=== PATIENT | male | born 1970 | race Caucasian/White ===

== ENCOUNTER 2021-09-03 11:23 | Observation (INO) | payer OTHER, SELFPAY ==
[2021-09-03 11:24] VITALS: BP 193/81; PULSE 89; RESP 16; TEMP 36.2; O2SAT 98; BMI 46.9
--- NOTE | 2021-09-03 11:48 | EDS_ITS ---
HPI History of Present Illness Chief Complaint: Bite Narrative Narrative: Patient was bit by a cat yesterday. He did not come into the hospital today he noticed lymphangitic streaking all the way up his arm. He has no fever or chills. He is a diabetic. ROS ROS ED ROS Narrative Past medical history: Reviewed, diabetes, hypertension Medications: Reviewed Social history: Noncontributory Review of systems: All systems negative except as indicated General: No fever Cardiovascular: No chest pain Respiratory: No shortness of breath or cough Gastrointestinal: No abdominal pain, nausea vomiting or diarrhea Genitourinary: No dysuria Musculoskeletal: Left hand cat bite Skin: As in HPI Neurological: No memory loss, confusion or any focal weakness Psych: No recent behavioral changes Hematologic: No easy bleeding or easy bruising PFSH PFS Medical History Diabetes Hypertension Allergy/AdvReac Type Severity Reaction Status Date / Time amoxicillin Allergy Hives Verified 09/03/21 11:25 Social History Smoking Status: Never smoker EXAM Physical Exam Narrative Exam Narrative: Physical exam General: Well nourished, Well developed, No Acute Distress Head: Normocephalic, Atraumatic Eyes: Conjunctiva not pale ENT: Moist mucous membranes Neck: Supple, Nontender, No lymphadenopathy Cardiovascular: Regular rate, Regular rhythm Respiratory: No distress, CTA bilaterally Abdomen: Soft, Nontender, Nondistended Back: Nontender, Normal Inspection. Negative for: CVA tenderness Extremities: Left hand shows swelling and edema on the dorsum of the hand in between first and second digits. There is lymphangitic streak all the way up near the axilla but I cannot appreciate any axillary lymphadenopathy. No signs of an abscess. Skin: As above Neurological: Alert, Normal Strength, Normal Sensation Psychological: Normal affect Const Vital Signs: 09/03/21 11:24 Temperature 97.2 F L Temperature Source Temporal Pulse Rate 89 Respiratory Rate 16 Blood Pressure 193/81 H Blood Pressure Mean 118 Pulse Ox 98 Oxygen Delivery Method Room Air MDM MDM MDM Narrative Medical decision making narrative: Patient was given IV antibiotics because of the significant lymphangitic streaking I will admit him. Lab Data Labs: Laboratory Results - last 24 hr 09/03/21 09/03/21 12:00 12:00 WBC 10.2 RBC 4.57 L Hgb 14.1 Hct 41.6 MCV 91.0 MCH 30.9 MCHC 33.9 RDW Std Deviation 43.3 RDW Coeff of Saeed 13.2 Plt Count 251 MPV 9.5 Immature Gran % (Auto) 0.300 Neut % (Auto) 68.0 Lymph % (Auto) 16.6 L [place] % (Auto) 10.2 H Eos % (Auto) 4.5 Baso % (Auto) 0.4 Absolute Neuts (auto) 6.9 Absolute Lymphs (auto) 1.69 Nucleated RBC % 0 Sodium 137 Potassium 3.7 Chloride 104 Carbon Dioxide 27.0 Anion Gap 6 BUN 19 H Creatinine 1.26 Estim Creat Clear Calc 65.60 Est GFR (MDRD) Af Amer 77 Est GFR (MDRD) Non-Af 64 BUN/Creatinine Ratio 15.1 Glucose 172 H Calcium 9.8 Total Bilirubin 1.10 H AST 18 ALT 34 Alkaline Phosphatase 74 Total Protein 7.9 Albumin 3.9 Globulin 4.0 Albumin/Globulin Ratio 1.0 Discharge Plan Triage Chief Complaint: Bite ED Provider: Lewis Durant Dx/Rx/DC Orders Clinical Impression: Cat bite, Lymphangitis Primary Care Provider: Luis Busch Referrals: Luis Busch [Primary Care Provider] - Disposition Disposition: Acute Care Hospital [facility]
[2021-09-03 12:14] LABS: Absolute Lymphocyte Count 1.69 X10^3/uL (0.83-4.51); Absolute Neutrophil Count 6.9 X10^3/uL (2.0-7.7); Basophil# 0.04 X10^3/uL; Basophil% 0.4 % (0-1); Eosinophil# 0.46 X10^3/uL; Eosinophils% 4.5 % (0-5); Hematocrit 41.6 % (40-54); Hemoglobin 14.1 g/dL (13.0-16.5); Lymphocyte # 1.69 X10^3/ul (0.83-4.51); Lymphocyte % 16.6 % (19-41); Mean Corp Hgb Conc 33.9 g/dL (32-36); Mean Corpuscular Hgb 30.9 pg (27.0-32.0); Mean Platelet Vol. 9.5 fl (6.2-12.0); Monocyte# 1.04 X10^3/uL; Monocyte% 10.2 % (0-10); NRBC Flagged by Analyzer 0 % (0-5); Platelet Count 251 K/mm3 (150-450); RBC Distribution Width CV 13.2 % (11.6-14.6); RBC Distribution Width SD 43.3 fl (35.1-43.9); Red Blood Count 4.57 M/mm3 (4.6-6.2); White Blood Count 10.2 K/mm3 (4.4-11.0)
[2021-09-03 12:29] LABS: AST(SGOT) 18 U/L (15-37); Alanine Aminotransfer ALT/SGPT 34 U/L (16-61); Albumin, Serum 3.9 g/dL (3.2-5.0); Alkaline Phosphatase 74 U/L (45-117); Anion Gap 6 (5-15); BUN 19 mg/dL (7-18); BUN/Creat Ratio 15.1 RATIO (10-20); Calcium,Total 9.8 mg/dL (8.5-10.1); Chloride 104 mmol/L (98-107); Creatinine, Serum 1.26 mg/dL (0.70-1.30); EST Glomerular Filtration Rate 64 mL/min (>60); Est Glom Filt Rate - Afr Amer 77 mL/min (>60); Glucose 172 mg/dL (74-106); Potassium 3.7 mmol/L (3.5-5.1); Protein, Total 7.9 g/dL (6.4-8.2); Sodium Level 137 mmol/L (136-145)
--- NOTE | 2021-09-03 12:49 | CM.ED ---
SW/CM Assessment Information Source: Patient Patient confirmed Demographics. He reports he has [employer] Insurance and no other insurance. Living Will/HCPOA: Patient reports that he has a LW/HCPOA. SW advised patient to bring the paperwork to the hospital so it can be scanned in. Name of PCP: Narayan Specialist: None Insurance: [employer] Prescription Insurance: [employer] No previous inpatient hospitalization at acute hospital setting. [facility]: [facility] Lives with :Girlfriend, Concetta García who is recovering at his house due to a diabetic foot ulcer Patient said that his grandparents and parents are . His in 2014. Living Arrangements: One floor ranch house. Patient reports wheel chair ramp to inside of the house ADL's: Patient is independent in his ADL's. Employment: [employer]. He has been at the job for 33 years. No smoking or alcohol use. Patient reports feeling safe at home. Transportation: Patient is able to drive. Current DME: Patient said that he has raised toilet seat, wheelchair ramp, wheelchair, walker, crutches and the bathroom has been safetyproofed related to when his parents needed DME and now his girlfriend uses DME. No previous home health Plan: Admit to inpatient. RN/CM can follow up with any additional issues or concerns. Mayra BELLO
[2021-09-03 13:03] VITALS: BP 132/74; PULSE 78; RESP 16; TEMP 36.7; O2SAT 95
[2021-09-03] MEDS: Ciprofloxacin 400 MG/200 ML BAG 200 MG IV (13:04)
[2021-09-03 15:05] VITALS: BP 151/73; PULSE 80; RESP 18; TEMP 37.6; O2SAT 98
[2021-09-03 15:16] VITALS: BMI 46.9
--- NOTE | 2021-09-03 15:52 | PCM.HP.STD ---
Documented by User: Romulo BROWN 09/03/21 16:09 HPI - General General Date of Admission: 09/03/21 Date of Service: 09/03/21 Chief Complaint: Cat bite to right hand HPI Narrative EVONNE LEIGH is a 51-year-old male who presents to the ED at [facility] on 09/03/2021 for evaluation and management of a cat bite to right hand. Patient reports that yesterday afternoon at about 3 PM he was feeding the feral cats that come to his backyard, when one of the cat subsequently bit him on the interdigital webspaces between the thumb and index finger. Patient did not present to ED initially as he just washed wound, but subsequently developed red streaking up his right arm and was advised to come into the emergency department for evaluation. Patient denies any fever, chills, N/V/D or any other infectious symptoms. Vital signs are stable and patient is afebrile. CBC does not demonstrate a leukocytosis and is otherwise unremarkable. BMP unremarkable. Blood cultures ordered/pending. Patient was initiated on ciprofloxacin and clindamycin in the ED. [facility] Medical History Anxiety BiPAP (biphasic positive airway pressure) dependence Diabetes Hypertension Non-smoker Sleep apnea Home Medications aspirin 81 mg PO QHS 09/03/21 [History Last Taken 09/02/21] atorvastatin 20 mg PO QHS 09/03/21 [History Last Taken 09/02/21] dulaglutide [Trulicity] 30 mg SUBCUT MO 09/03/21 [History Last Taken 08/27/21] fluoxetine 20 mg PO QHS 09/03/21 [History Last Taken 09/02/21] hydrochlorothiazide 25 mg PO QHS 09/03/21 [History Last Taken 09/02/21] insulin detemir U-100 [Levemir FlexTouch U-100 Insuln] 80 unit SUBCUT QHS 09/03/21 [History Last Taken 09/02/21] insulin lispro [Humalog KwikPen Insulin] 20 - 24 sliding scale dose SUBCUT TIDCM 09/03/21 [History Last Taken 09/03/21 23 units] lisinopril 10 mg PO QHS 09/03/21 [History Last Taken 09/02/21] metformin 1,000 mg PO BIDCM 09/03/21 [History Last Taken 09/03/21] metoprolol succinate 100 mg PO QHS 09/03/21 [History Last Taken 09/02/21] multivitamin 1 tab PO DAILY 09/03/21 [History Last Taken 09/02/21] Allergy/AdvReac Type Severity Reaction Status Date / Time amoxicillin Allergy Hives Verified 09/03/21 11:25 Family History (Updated 09/03/21 @ 15:56 by Romulo BROWN) Father Heart disease CAD (coronary artery disease) Hypertension Mother Diabetes Heart disease Surgical History no surgical history no surgical history Social History (Updated 09/03/21 @ 15:56 by Romulo BROWN) Smoking Status: Former smoker ROS Review of Systems ROS Unobtainable: Denies due to encephalopathy, due to endotracheal tube, due to mental condition, due to mental status or other Constitutional Constitutional: Denies anorexia, change in weight, chills, fatigue, fever(s), malaise, night sweats, weakness or other Eyes Eyes: Denies blurry vision, change in eye color, change in vision, discharge from eye(s), double vision, erythema, eye pain, loss of vision or other ENT HEENT: Denies abnormal hearing, dysphagia, ear pain, epistaxis, headache(s), hearing loss, nasal congestion, nasal discharge, post nasal drip, sinus pressure, sore throat or other Cardiovascular Cardiovascular: Denies chest pain, claudication, dyspnea on exertion, edema, lightheadedness, orthopnea, palpitations, paroxysmal nocturnal dyspnea, rapid heart rate, syncope or other Respiratory/Chest Respiratory/Chest: Denies cough, dyspnea, excessive phlegm production, hemoptysis, productive cough, shortness of breath at rest, shortness of breath with exertion, wheezing or other Gastrointestinal Gastrointestinal: Denies abdominal pain, coffee ground emesis, constipation, diarrhea, dyspepsia, hematemesis, hematochezia, loose stools, melena, nausea, vomiting or other Genitourinary Genitourinary: Denies burning urination, difficulty urinating, dysuria, hematuria, nocturia, urinary frequency, urinary hesitancy, urinary incontinence, urinary urgency or other Musculoskeletal Musculoskeletal: Denies arthralgias, back pain, joint pain, joint stiffness, joint swelling, myalgias, neck pain or other Neurologic Neurologic: Denies abnormal gait, abnormal speech, confusion, disequilibrium, dizziness, focal weakness, headache(s), numbness, paresthesias, seizure-like activity, seizures, syncope, tingling, tremor(s) or other Psychiatric Psychiatric: Denies anxiety, depression, homicidal ideation, suicidal ideation or other Endocrine Endocrinology: Denies change in body appearance, cold intolerance, excessive sweating, heat intolerance, polydipsia, polyuria or other Hematologic/Lymphatic Hematologic/Lymphatic: Denies anemia, easy bleeding, easy bruising, lymphadenopathy or other Allergic/Immunologic Allergic/Immunologic: Denies rhinitis, hives, eczemia, asthma or other Vital Signs Vital Signs Vital Signs: 09/03/21 11:24 09/03/21 13:03 09/03/21 15:05 Temperature 97.2 F L 98.0 F 99.6 F H Temperature Source Temporal Oral Oral Pulse Rate 89 78 80 Respiratory Rate 16 16 18 Respiratory Effort Blood Pressure 193/81 H 132/74 H 151/73 H Blood Pressure Mean 118 93 99 Blood Pressure Source Monitor Blood Pressure Position Semi-Fowlers Blood Pressure Location Right Arm Pulse Ox 98 95 98 Oxygen Delivery Method Room Air Room Air Room Air 09/03/21 15:08 Temperature Temperature Source Pulse Rate Respiratory Rate Respiratory Effort Normal Blood Pressure Blood Pressure Mean Blood Pressure Source Blood Pressure Position Blood Pressure Location Pulse Ox Oxygen Delivery Method Room Air Weight Weight: 308 lb 13.882 oz Body Mass Index (BMI) 46.9 Physical Exam Const alert and oriented x3 General Appearance: cooperative Nutritional Appearance: morbidly obese HEENT normocephalic, head/scalp atraumatic and hearing grossly normal bilaterally Eyes PERRL and conjunctivae normal Neck no lymphadenopathy, supple and no JVD Resp normal respiratory effort, no retractions and no use of accessory muscles Cardio regular rate, regular rhythm and no JVD GI normal to inspection, nondistended, normoactive bowel sounds Extremity Extremity Narrative: Right hand is red and tender to palpation in the interdigital webspaces between the thumb and index finger. Patient also with red streak about the anterolateral aspect of the right forearm. Patient says the red streak is transient. Skin Skin Narrative: See extremity. Neuro CN's II-XII intact bilaterally Psych affect normal Results Lab / Micro Data Result Diagrams: 09/03/21 12:00 09/03/21 12:00 Labs: Laboratory Results - last 24 hr 09/03/21 12:00: WBC 10.2, RBC 4.57 L, Hgb 14.1, Hct 41.6, MCV 91.0, MCH 30.9, MCHC 33.9, RDW Std Deviation 43.3, RDW Coeff of Saeed 13.2, Plt Count 251, MPV 9.5, Immature Gran % (Auto) 0.300, Neut % (Auto) 68.0, Lymph % (Auto) 16.6 L, [place] % (Auto) 10.2 H, Eos % (Auto) 4.5, Baso % (Auto) 0.4, Absolute Neuts (auto) 6.9, Absolute Lymphs (auto) 1.69, Nucleated RBC % 0 09/03/21 12:00: Sodium 137, Potassium 3.7, Chloride 104, Carbon Dioxide 27.0, Anion Gap 6, BUN 19 H, Creatinine 1.26, Estim Creat Clear Calc 65.60, Est GFR (MDRD) Af Amer 77, Est GFR (MDRD) Non-Af 64, BUN/Creatinine Ratio 15.1, Glucose 172 H, Calcium 9.8, Total Bilirubin 1.10 H, AST 18, ALT 34, Alkaline Phosphatase 74, Total Protein 7.9, Albumin 3.9, Globulin 4.0, Albumin/Globulin Ratio 1.0 Assessment & Plan Assessment/Plan (1) Cat bite: (2) Lymphangitis: PLAN: Patient is a 51-year-old male who presents to the ED at [facility] on 09/03/2021 for evaluation and management of cat bite to right hand. Patient placed in observation overnight for administration of IV antibiotics. 1) cat bite to right hand with lymphatic streaking Patient with 1 day history of cat bite to right hand. Right hand is red and tender to palpation about the interdigital webspace between the thumb and index finger. There is lymphatic streaking about the anterolateral aspect of the right arm, patient reports this is transient. Cat that bit patient is feral, and patient is unaware of vaccination status. Patient's vital signs are stable and afebrile. CBC does not demonstrate a leukocytosis. Given that patient is morbidly obese and has a history of diabetes it was requested from ED that patient be admitted for administration of IV antibiotic. Patient with penicillin allergy. Plan; placed on [facility] floor in observation, Rocephin and metronidazole on recommendation from ID to cover for Pasteurella multocida, blood culture pending. 2) DM2 Hold home diabetic regimen, continue Accu-Cheks with sliding scale insulin. 3) HTN Stable, continue metoprolol, lisinopril and hydrochlorothiazide. 4) CAD Continue aspirin and statin. 5) depression/anxiety Continue fluoxetine. DVT prophylaxis - SCDs, low risk. Patient seen by Romulo Burrows PA-C, under the supervision of Dr. Farley. Time spent on patient care: 25 minutes. Documented by User: Dr. Armin Farley, 09/03/21 18:19 HPI - General General Date of Admission: 09/03/21 [facility] Medical History Anxiety BiPAP (biphasic positive airway pressure) dependence Diabetes Hypertension Non-smoker Sleep apnea Home Medications aspirin 81 mg PO QHS 09/03/21 [History Last Taken 09/02/21] atorvastatin 20 mg PO QHS 09/03/21 [History Last Taken 09/02/21] dulaglutide [Trulicity] 30 mg SUBCUT MO 09/03/21 [History Last Taken 08/27/21] fluoxetine 20 mg PO QHS 09/03/21 [History Last Taken 09/02/21] hydrochlorothiazide 25 mg PO QHS 09/03/21 [History Last Taken 09/02/21] insulin detemir U-100 [Levemir FlexTouch U-100 Insuln] 80 unit SUBCUT QHS 09/03/21 [History Last Taken 09/02/21] insulin lispro [Humalog KwikPen Insulin] 20 - 24 sliding scale dose SUBCUT TIDCM 09/03/21 [History Last Taken 09/03/21 23 units] lisinopril 10 mg PO QHS 09/03/21 [History Last Taken 09/02/21] metformin 1,000 mg PO BIDCM 09/03/21 [History Last Taken 09/03/21] metoprolol succinate 100 mg PO QHS 09/03/21 [History Last Taken 09/02/21] multivitamin 1 tab PO DAILY 09/03/21 [History Last Taken 09/02/21] Allergy/AdvReac Type Severity Reaction Status Date / Time amoxicillin Allergy Hives Verified 09/03/21 11:25 Family History (Updated 09/03/21 @ 15:56 by Romulo BROWN) Father Heart disease CAD (coronary artery disease) Hypertension Mother Diabetes Heart disease Surgical History no surgical history Social History (Updated 09/03/21 @ 15:56 by Romulo BROWN) Smoking Status: Former smoker Results Lab / Micro Data Result Diagrams: 09/03/21 12:00 09/03/21 12:00 Charges/Coding Addendum Addendum: Patient was seen and examined independently of Romulo Burrows, he came to the ER today with complaints of redness in his right arm since he was bitten by his cat on 09/02/2021. Patient denies any fevers or chills, he is able to make a fist with his right hand. On examination he appeared in good health and spirits. Vital signs as documented. Skin warm and dry, there is some redness noted streaking up the inside of the patient's right arm, there is also some mild swelling in the area between the right thumb and right index finger, there is no discharge noted from the area. Neck without JVD, neck was supple, trachea midline, thyroid was normal. Lungs clear bilaterally, normal air movement was noted. Heart exam notable for regular rhythm, normal sounds and absence of murmurs, rubs or gallops. Abdomen unremarkable and without evidence of organomegaly, masses, or abdominal aortic enlargement. Bowel sounds are present, abdomen is not distended. Extremities nonedematous, no cyanosis was noted, no clubbing was noted. Neuro: Cranial nerves II through XII are grossly intact, no focal motor deficits were noted, sensation to light touch and pinprick intact, motor exam 5/5 throughout. Psych: Patient is alert and oriented x3, he does not appear anxious or depressed, he does not appear agitated. Patient's white blood cell count was normal., Chemistry panel was abnormal for glucose of 172, and a bilirubin of 1.1. Impression: #1 cellulitis secondary to right hand cat bite-patient will be placed in observation status on MedSurg 3, he will receive IV Rocephin and IV Flagyl, patient will be evaluated tomorrow #2 type 2 diabetes-patient will remain on his current home medications which include Levemir and Humalog. #3 essential hypertension-patient will continue on his home diabetes medication. I have reviewed Romulo Burrows's history and physical including his medical assessment and plan of care and endorse it with the above additions. Total clinical time spent by myself addressing the patient's issues, reviewing the patient's medical data, and collaborating with the patient's care team: 45 minutes Visit Charges OBSV E&M: 26230 Initial observation care L3
[2021-09-03] MEDS: Ceftriaxone 1 GM/50 ML BAG IV (16:05)
[2021-09-03] MEDS: metroNIDAZOLE 500 MG/100 ML BAG 100 MG IV ×2 (16:38→22:10)
[2021-09-03 16:50] LABS: Bedside Glucose 169 mg/dL (74-106)
[2021-09-03 22:10] VITALS: PULSE 75
[2021-09-03] MEDS: hydroCHLOROthiazide 25 MG Tablet PO (22:10)
[2021-09-03] MEDS: FLUoxetine 20 MG Capsule PO (22:10)
[2021-09-03] MEDS: Lisinopril 10 MG Tablet PO (22:10)
[2021-09-03] MEDS: Atorvastatin Calcium 20 MG Tablet PO (22:10)
[2021-09-03] MEDS: Aspirin 81 MG TAB.CHEW PO (22:10)
[2021-09-03] MEDS: Metoprolol(XL)Succ 100 MG Tablet PO (22:10)
[2021-09-03 22:21] LABS: Bedside Glucose 209 mg/dL (74-106)
[2021-09-03] MEDS: Insulin Lispro 100 UNIT/ML INSULN.PEN SC (22:22)
[2021-09-03 22:42] VITALS: BP 152/71; PULSE 75; RESP 16; TEMP 37.2; O2SAT 98
[2021-09-04] MEDS: metroNIDAZOLE 500 MG/100 ML BAG 100 MG IV (05:15)
[2021-09-04] MEDS: 0.9% Saline Lock 10 ML Syringe IV (05:15)
[2021-09-04 05:20] VITALS: BP 126/73; PULSE 71; RESP 16; TEMP 36.9; O2SAT 96
[2021-09-04 06:25] LABS: Absolute Lymphocyte Count 1.63 X10^3/uL (0.83-4.51); Absolute Neutrophil Count 4.8 X10^3/uL (2.0-7.7); Basophil# 0.03 X10^3/uL; Basophil% 0.4 % (0-1); Eosinophil# 0.46 X10^3/uL; Eosinophils% 5.8 % (0-5); Hematocrit 36.7 % (40-54); Hemoglobin 12.2 g/dL (13.0-16.5); Lymphocyte # 1.63 X10^3/ul (0.83-4.51); Lymphocyte % 20.7 % (19-41); Mean Corp Hgb Conc 33.2 g/dL (32-36); Mean Corpuscular Volume 90.2 fL (80-94); Mean Platelet Vol. 9.2 fl (6.2-12.0); Monocyte# 0.95 X10^3/uL; Monocyte% 12.1 % (0-10); NRBC Flagged by Analyzer 0 % (0-5); Neutrophil # 4.78 X10^3/uL (2.7-7.7); Neutrophil % 60.6 % (47-70); Platelet Count 219 K/mm3 (150-450); RBC Distribution Width CV 13.2 % (11.6-14.6); RBC Distribution Width SD 43.5 fl (35.1-43.9); Red Blood Count 4.07 M/mm3 (4.6-6.2); White Blood Count 7.9 K/mm3 (4.4-11.0)
[2021-09-04] MEDS: Insulin Lispro 100 UNIT/ML INSULN.PEN SC (06:31)
[2021-09-04 06:36] LABS: Bedside Glucose 242 mg/dL (74-106)
[2021-09-04] MEDS: metFORMIN HCl 1,000 MG Tablet 1000 MG PO (07:52)
[2021-09-04] MEDS: Ceftriaxone 1 GM/50 ML BAG IV (09:35)
--- NOTE | 2021-09-04 09:48 | CASEMGMT ---
STANISLAW CM in to pt room. Pt lying in bed. Denies any homegoing needs. Pt reports his cat bite is not open. Plan to dc home today.
--- NOTE | 2021-09-04 10:19 | PCM.DC ---
Discharge Instructions Diet Discharge Diet: No restrictions Activity Discharge Activity: Return to Normal Activity Weight Bearing Status: Weight bearing as tolerated Dressing / Incision Call your doctor if you observe: Fever of 101 or Higher, Numbness or Tingling, Shortness of breath, Dizziness, Chest pain, Increased palpitations (irregular heartbeat) and Calf discomfort Follow Up Care Please Follow Up With: Primary care provider When: Within the next two weeks. Test Results: Test results from this visit will be discussed in further detail at your follow-up appointment, if applicable. Discharge Plan Admission Admit Date/Time: 09/03/21 12:45 Primary Reason for Your Visit: Cat bite to right hand. Attending Provider: Armin Farley Primary Care Provider: Luis Busch Discharge Orders/Prescriptions Prescriptions: New cefdinir 300 mg capsule 300 mg PO BID Qty: 14 RF: 0 metronidazole 500 mg tablet 500 mg PO TID Qty: 21 RF: 0 Continued atorvastatin 20 mg tablet 20 mg PO QHS RF: 0 metoprolol succinate 100 mg tablet extended release 24 hr 100 mg PO QHS RF: 0 metformin 1,000 mg tablet 1,000 mg PO BIDCM RF: 0 lisinopril 10 mg tablet 10 mg PO QHS RF: 0 hydrochlorothiazide 25 mg tablet 25 mg PO QHS RF: 0 fluoxetine 20 mg capsule 20 mg PO QHS RF: 0 insulin lispro [Humalog KwikPen Insulin] 100 unit/mL insulin pen 20 - 24 sliding scale dose SUBCUT TIDCM RF: 0 Levemir FlexTouch U-100 Insuln 100 unit/mL (3 mL) insulin pen 80 unit SUBCUT QHS RF: 0 Trulicity 3 mg/0.5 mL pen injector 30 mg SUBCUT MO RF: 0 multivitamin Tablet 1 tab PO DAILY RF: 0 aspirin 81 mg Tablet 81 mg PO QHS RF: 0 Referrals / Follow Up: Luis Busch [Primary Care Provider] - Within 2 Weeks Disposition Disposition (needs filled in before D/C Order can be placed): Home, Self Care
[2021-09-04 11:00] VITALS: BP 123/59; PULSE 70; RESP 18; TEMP 37.1; O2SAT 95
[2021-09-04 11:05] LABS: Bedside Glucose 256 mg/dL (74-106)
--- NOTE | 2021-09-04 13:49 | PCM.DC.SUM ---
Documented by User: Romulo BROWN 09/04/21 13:54 Providers Date of Admission: 09/03/21 Date of Discharge: 09/04/21 Primary Care Physician: Luis Busch Reason For Visit: CAT BITE Diagnosis Discharge Diagnosis (1) Cat bite: Status: Acute Code(s): W55.01XA - Bitten by cat, initial encounter (2) Lymphangitis: Status: Acute Code(s): I89.1 - Lymphangitis Medications at Discharge Home Medications Levemir FlexTouch U-100 Insuln 80 unit SUBCUT QHS 09/03/21 Trulicity 30 mg SUBCUT MO 09/03/21 aspirin 81 mg PO QHS 09/03/21 atorvastatin 20 mg PO QHS 09/03/21 fluoxetine 20 mg PO QHS 09/03/21 hydrochlorothiazide 25 mg PO QHS 09/03/21 insulin lispro [Humalog KwikPen Insulin] 20 - 24 sliding scale dose SUBCUT TIDCM 09/03/21 lisinopril 10 mg PO QHS 09/03/21 metformin 1,000 mg PO BIDCM 09/03/21 metoprolol succinate 100 mg PO QHS 09/03/21 multivitamin 1 tab PO DAILY 09/03/21 cefdinir 300 mg PO BID #14 cap 09/04/21 metronidazole 500 mg PO TID #21 tab 09/04/21 Hospital Course Summary of Care Provided Minutes Spent on Discharge: 20 Hospital Course: Patient is a 51-year-old male who was admitted to [facility] on 09/03/2021 for evaluation and management of cat bite to right hand. On admission there was noted redness, swelling and tenderness to palpation at the interdigital webspaces between the thumb and index finger on the right hand. Patient was also with lymphangitic streaking about the right arm extending from the hand. Patient was initiated on Rocephin and metronidazole during admission. Patient was not placed on Augmentin due to penicillin allergy. Patient's right hand and streaking on right arm significantly improved overnight. Patient was discharged on oral antibiotics which patient is to continue for another 7 days. If patient notes worsening of right hand wound before or after antibiotic course is complete he is to report to his primary care provider immediately for evaluation. Patient acknowledges and understands all. All other home medications were continued. Patient seen by Romulo Burrows PA-C, under the supervision of Dr Farley. Physical Exam Narrative Patient is a 51-year-old male comfortably resting in bed, alert and orient x3. Patient denies development of any new symptoms overnight. Does not appear in acute distress. Const alert, oriented x3 and no apparent distress HEENT normocephalic, head/scalp atraumatic and hearing grossly normal bilaterally Eyes PERRL and conjunctivae normal Neck no lymphadenopathy, supple and no JVD Resp normal respiratory effort, no retractions and no use of accessory muscles Cardio regular rate, regular rhythm and no JVD GI normal to inspection, nondistended, normoactive bowel sounds Extremity normal to inspection Skin no rashes or lesions noted Neuro CN's II-XII intact bilaterally Psych affect normal Weight / BMI Weight Weight: 308 lb 13.882 oz Body Mass Index (BMI) 46.9 ABG / Lab / Microbiology Data Result Diagrams: 09/04/21 06:01 09/03/21 12:00 Laboratory: Laboratory Results - last 24 hr 09/03/21 16:35: POC Glucose 169 H 09/03/21 22:15: POC Glucose 209 H 09/04/21 06:01: WBC 7.9, RBC 4.07 L, Hgb 12.2 L, Hct 36.7 L, MCV 90.2, MCH 30.0, MCHC 33.2, RDW Std Deviation 43.5, RDW Coeff of Saeed 13.2, Plt Count 219, MPV 9.2, Immature Gran % (Auto) 0.400, Neut % (Auto) 60.6, Lymph % (Auto) 20.7, [place] % (Auto) 12.1 H, Eos % (Auto) 5.8 H, Baso % (Auto) 0.4, Absolute Neuts (auto) 4.8, Absolute Lymphs (auto) 1.63, Nucleated RBC % 0 09/04/21 06:30: POC Glucose 242 H 09/04/21 11:01: POC Glucose 256 H D/C Instructions Discharge Diet: No restrictions Weight Bearing Status: Weight bearing as tolerated Call your doctor if you observe: Fever of 101 or Higher, Numbness or Tingling, Shortness of breath, Dizziness, Chest pain, Increased palpitations (irregular heartbeat) and Calf discomfort Please Follow Up With: Primary care provider When: Within the next two weeks. Meaningful Use Info Meaningful Use Diagnoses (Choose all that apply): None applicable Discharge Plan Admission Admit Date/Time: 09/03/21 12:45 Primary Reason for Your Visit: Cat bite to right hand. Attending Provider: Armin Farley Primary Care Provider: Luis Busch Discharge Orders/Prescriptions Prescriptions: New cefdinir 300 mg capsule 300 mg PO BID Qty: 14 RF: 0 metronidazole 500 mg tablet 500 mg PO TID Qty: 21 RF: 0 Continued atorvastatin 20 mg tablet 20 mg PO QHS RF: 0 metoprolol succinate 100 mg tablet extended release 24 hr 100 mg PO QHS RF: 0 metformin 1,000 mg tablet 1,000 mg PO BIDCM RF: 0 lisinopril 10 mg tablet 10 mg PO QHS RF: 0 hydrochlorothiazide 25 mg tablet 25 mg PO QHS RF: 0 fluoxetine 20 mg capsule 20 mg PO QHS RF: 0 insulin lispro [Humalog KwikPen Insulin] 100 unit/mL insulin pen 20 - 24 sliding scale dose SUBCUT TIDCM RF: 0 Levemir FlexTouch U-100 Insuln 100 unit/mL (3 mL) insulin pen 80 unit SUBCUT QHS RF: 0 Trulicity 3 mg/0.5 mL pen injector 30 mg SUBCUT MO RF: 0 multivitamin Tablet 1 tab PO DAILY RF: 0 aspirin 81 mg Tablet 81 mg PO QHS RF: 0 Referrals / Follow Up: Luis Busch [Primary Care Provider] - Within 2 Weeks Disposition Disposition (needs filled in before D/C Order can be placed): Home, Self Care Documented by User: Dr. Armin Farley DO 09/04/21 19:18 Providers Date of Admission: 09/03/21 Reason For Visit: CAT BITE Medications at Discharge Home Medications Levemir FlexTouch U-100 Insuln 80 unit SUBCUT QHS 09/03/21 Trulicity 30 mg SUBCUT MO 09/03/21 aspirin 81 mg PO QHS 09/03/21 atorvastatin 20 mg PO QHS 09/03/21 fluoxetine 20 mg PO QHS 09/03/21 hydrochlorothiazide 25 mg PO QHS 09/03/21 insulin lispro [Humalog KwikPen Insulin] 20 - 24 sliding scale dose SUBCUT TIDCM 09/03/21 lisinopril 10 mg PO QHS 09/03/21 metformin 1,000 mg PO BIDCM 09/03/21 metoprolol succinate 100 mg PO QHS 09/03/21 multivitamin 1 tab PO DAILY 09/03/21 cefdinir 300 mg PO BID #14 cap 09/04/21 metronidazole 500 mg PO TID #21 tab 09/04/21 ABG / Lab / Microbiology Data Result Diagrams: 09/04/21 06:01 09/03/21 12:00 Discharge Plan Admission Admit Date/Time: 09/03/21 12:45 Primary Reason for Your Visit: Cat bite to right hand. Attending Provider: Armin Farley Primary Care Provider: Luis Busch Discharge Orders/Prescriptions Prescriptions: New cefdinir 300 mg capsule 300 mg PO BID Qty: 14 RF: 0 metronidazole 500 mg tablet 500 mg PO TID Qty: 21 RF: 0 Continued atorvastatin 20 mg tablet 20 mg PO QHS RF: 0 metoprolol succinate 100 mg tablet extended release 24 hr 100 mg PO QHS RF: 0 metformin 1,000 mg tablet 1,000 mg PO BIDCM RF: 0 lisinopril 10 mg tablet 10 mg PO QHS RF: 0 hydrochlorothiazide 25 mg tablet 25 mg PO QHS RF: 0 fluoxetine 20 mg capsule 20 mg PO QHS RF: 0 insulin lispro [Humalog KwikPen Insulin] 100 unit/mL insulin pen 20 - 24 sliding scale dose SUBCUT TIDCM RF: 0 Levemir FlexTouch U-100 Insuln 100 unit/mL (3 mL) insulin pen 80 unit SUBCUT QHS RF: 0 Trulicity 3 mg/0.5 mL pen injector 30 mg SUBCUT MO RF: 0 multivitamin Tablet 1 tab PO DAILY RF: 0 aspirin 81 mg Tablet 81 mg PO QHS RF: 0 Referrals / Follow Up: Luis Busch [Primary Care Provider] - Within 2 Weeks Disposition Disposition (needs filled in before D/C Order can be placed): Home, Self Care Charges/Coding Addendum Addendum: Patient was seen and examined independently of Romulo Burrows today, his redness up his right arm has resolved at this time, his hand is nontender to palpation he has full range of motion of his right hand. On examination he appeared in good health and spirits. Vital signs as documented. Skin warm and dry and without overt rashes. Neck without JVD, neck was supple, trachea midline, thyroid was normal. Lungs clear bilaterally, normal air movement was noted. Heart exam notable for regular rhythm, normal sounds and absence of murmurs, rubs or gallops. Abdomen unremarkable and without evidence of organomegaly, masses, or abdominal aortic enlargement. Bowel sounds are present, abdomen is not distended. Extremities nonedematous, no cyanosis was noted, no clubbing was noted. Neuro: Cranial nerves II through XII are grossly intact, no focal motor deficits were noted, sensation to light touch and pinprick intact, motor exam 5/5 throughout. Psych: Patient is alert and oriented x3, he does not appear anxious or depressed, he does not appear agitated. Impression #1 cellulitis of the right hand-secondary to cat bite #2 lymphangitis of the right arm-resolving at this time #3 type 2 diabetes #4 hypertension I have reviewed Romulo Burrows's discharge summary including his medical assessment and plan of care and endorse it. Total clinical time spent by myself reviewing the patient's medical records, addressing the patient's issues, and collaborating with healthcare team: 30 minutes Visit Charges OBSV E&M: [id number] Observation care discharge
== END 2021-09-04 11:15 | disposition home or self-care (01) ==
LOC: ED 12:34 → MS3 12:59
PROVIDERS: Admitting Provider Internal Medicine; Emergency Provider Emergency Medicine; Visit Provider Internal Medicine
DX: S61.451A Open bite of right hand, initial encounter (principal); Z79.4 Long term (current) use of insulin; E11.9 Type 2 diabetes mellitus without complications; W55.01XA Bitten by cat, initial encounter; I10 Essential (primary) hypertension; L03.113 Cellulitis of right upper limb; I89.1 Lymphangitis; Z79.899 Other long term (current) drug therapy; Z87.891 Personal history of nicotine dependence; Z79.82 Long term (current) use of aspirin
CPT/HCPCS: 36415; 80053; 82962; 85025; 87040; 96365; 96366; 96367; 99218; 99285; A4216; G0378; J0744